=== PATIENT | male | born 1990 | race Caucasian/White ===

== ENCOUNTER 2025-08-21 13:45 | Emergency (ER) | payer BC, OTHER ==
[~2025-08-21] VITALS: Ht 175.3 cm; Wt 127.0 kg
[2025-08-21 13:53] VITALS: TEMP 98.2
[2025-08-21 14:16] LABS: PLATELET COUNT (AUTO) 228 K/uL (150-450); RED BLOOD CELL COUNT(AUTO) 5.87 MIL/uL (4.50-5.90); RED CELL DISTRIBUTION WIDTH 15.7 % (11.5-14.5); WHITE BLOOD COUNT (AUTO) 8.1 K/uL (4.5-11.0)
[2025-08-21 14:25] LABS: CALCIUM, TOTAL 8.5 mg/dL (8.8-10.5); CREATININE 0.93 mg/dL (0.60-1.30); GLOMERULAR FILTR. RATE CALC > 60 mL/min (>60); GLUCOSE,RANDOM 114 mg/dL (70-110); SODIUM SERUM 133 mmol/L (136-145); UREA NITROGEN, BLOOD 16 mg/dL (7-18)
[2025-08-21 14:33] LABS: TROPONIN I-HIGH SENSITIVITY 7 ng/L (<76)
[2025-08-21] MEDS ORDERED: 0.9% SODIUM CHLORIDE 10 ML SYRINGE IVP ONE (14:57)
[2025-08-21] MEDS ORDERED: IOHEXOL 350 MG/ML 100 ML VIAL ONE (14:57)
[2025-08-21] MEDS ORDERED: SODIUM CHLORIDE 0.9% 100 ML ONE (14:57)
[2025-08-21] MEDS: ACETAMINOPHEN 500 MG TABLET PO ONE (15:08)
[2025-08-21] MEDS: SODIUM CHLORIDE 0.9% 1,000 ML IV ONE (15:09)
[2025-08-21 15:15] LABS: COVID AG,FIA SOURCE NASAL SWAB
[2025-08-21 15:33] LABS: INFLUENZA TYPE A NEGATIVE FOR TYPE A (NEGATIVE); INFLUENZA TYPE B NEGATIVE FOR TYPE B (NEGATIVE); SARS-COV2 (COVID) ANTIGEN,FIA Negative (Negative)
[2025-08-21 16:09] VITALS: BP 141/84; PULSE 92; RESP 18; O2SAT 94
[2025-08-21 16:12] LABS: TROPONIN I-HIGH SENSITIVITY 7 ng/L (<76)
[2025-08-21 16:49] LABS: ASPARTATE AMINOTRANSFERASE 30.0 U/L (15-37); TOTAL PROTEIN, SERUM 7.5 g/dL (6.4-8.2)
== END 2025-08-21 17:38 | disposition home or self-care (01) ==
LOC: EMS 13:45
DX: R07.89 Other chest pain (principal); E11.9 Type 2 diabetes mellitus without complications; Z90.49 Acquired absence of other specified parts of digestive tract; Z87.891 Personal history of nicotine dependence; Z91.013 Allergy to seafood; Z20.822 Contact with and (suspected) exposure to COVID-19
CPT/HCPCS: 99285; 74174; 96360; 74175; 71045; 87426; 80048; 80076; 82962; 84484; 85025; 85379; 87804; 36415; 93005; Q9967; J7030; J7050